=== PATIENT | female | born 1980 | race Caucasian/White ===

== ENCOUNTER 2017-11-03 09:11 | Emergency (ER) | payer SELFPAY ==
[~2017-11-03] VITALS: Ht 167.6 cm; Wt 74.8 kg
--- NOTE | 2017-11-03 09:26 | NUR ---
called to triage,no answer
[2017-11-03] MEDS ORDERED: LORAZEPAM 1 MG TABLET PO ONE (09:30)
[2017-11-03] MEDS ORDERED: LORAZEPAM 1 MG TABLET ONE (09:34)
[2017-11-03 10:24] VITALS: BP 136/65
--- NOTE | 2017-11-03 10:24 | NUR ---
Patient discharged to home in stable condition. Written and verbal after care instructions given. Patient verbalizes understanding of instruction. Friend will drive her home.
== END 2017-11-03 10:25 | disposition home or self-care (01) ==
LOC: ER 09:16
DX: R00.2 Palpitations (principal); R06.02 Shortness of breath; F41.9 Anxiety disorder, unspecified; Z88.1 Allergy status to other antibiotic agents
CPT/HCPCS: 80305; A4606; Z7610